=== PATIENT | male | born 1975 | race Caucasian/White ===

== ENCOUNTER 2020-01-31 19:46 | Emergency (ER) | payer SELFPAY ==
[~2020-01-31] VITALS: Ht 177.8 cm; Wt 89.4 kg
[2020-01-31 20:01] VITALS: BP 146/98
--- NOTE | 2020-01-31 20:14 | NUR ---
BIBA C/O LOER BACK PAIN X LESS THAN 1HR. 8/10 PAIN AND RAD TO UPPER BACK TO RT SIDE OF NECK AND DESCRIBES IT SHOOTING PAIN. PT WAS BENDING DOWN AND HEARD SOMETHING POP. CMS INTACT. VSS. NO OBVIOUS TRUAMA OR INJURY NOTED ON EXTREM OR BACK OR NECK. NKDA. PMH: GASTRIC SLEEVE, ACL.
[2020-01-31] MEDS ORDERED: KETOROLAC 60 MG/2 ML VIAL IM ONE (20:20)
[2020-01-31] MEDS ORDERED: LORazepam 2 MG/ML VIAL IM ONE (20:20)
--- NOTE | 2020-01-31 20:36 | NUR ---
PT TAKEN TO CT VIA W/C.
--- NOTE | 2020-01-31 21:30 | NUR ---
pt for d/c and on process doing the d/c
[2020-01-31 21:32] VITALS: BP 131/81
--- NOTE | 2020-01-31 21:33 | NUR ---
Patient discharged with v/s stable. Written and verbal after care instructions given and explained. Patient verbalized understanding. Ambulatory with steady gait. All questions addressed prior to discharge. Advised to follow up with PMD. Prescription of motrin, robaxin , tramadol was given. pt no cocerns noted and d/c
== END 2020-01-31 21:30 | disposition home or self-care (01) ==
LOC: MED 19:46
DX: S39.012A Strain of muscle, fascia and tendon of lower back, initial encounter (principal); X58.XXXA Exposure to other specified factors, initial encounter; Y93.89 Activity, other specified; Y92.89 Other specified places as the place of occurrence of the external cause; Y99.8 Other external cause status; F17.210 Nicotine dependence, cigarettes, uncomplicated
CPT/HCPCS: 72131; 96372; 99284; J1885; J2060; 96374; 96375